=== PATIENT | male | born 1975 | race Caucasian/White ===

== ENCOUNTER 2021-03-19 12:10 | Emergency (ER) | payer OTHER ==
[~2021-03-19] VITALS: Ht 177.8 cm; Wt 106.6 kg
[2021-03-19] MEDS ORDERED: HYDR1TAB94 PO (19:18)
== END 2021-03-19 19:25 | disposition home or self-care (01) ==
LOC: ER 12:10
DX: M19.011 Primary osteoarthritis, right shoulder (principal)
CPT/HCPCS: 73000; 99283-25

== ENCOUNTER 2022-10-21 11:40 | Inpatient (IN) | payer OTHER ==
[~2022-10-21] VITALS: Ht 177.8 cm; Wt 85.6 kg
[~2022-10-21 11:40] MED LIST: HYDR1TAB94 PO
[2022-10-21 15:32] LABS: Hematocrit 38.9 % (37.0-53.0); Hemoglobin 14.2 g/dL (13.5-17.5); Mean Corpuscular HGB 29.2 pg (26.0-34.0); Mean Corpuscular HGB Conc 36.5 g/dL (31.5-36.5); Mean Corpuscular Volume 80 fL (80-100); Mean Platelet Volume 9.8 fL (9.1-12.4); Platelet Count 252 K/mm3 (150-400); RDW Coefficient Variation 11.9 % (11.7-14.2); RDW Standard Deviation 34.5 fL (35.1-46.3); Red Blood Cell Count 4.87 M/mm3 (4.30-5.90); White Blood Cell Count 26.24 K/mm3 (4.00-11.30)
[2022-10-21 15:52] LABS: Bun/Creatinine Ratio 25.9 (12.0-20.0); Creatinine, Blood 0.89 mg/dL (0.60-1.20); Potassium, Blood 4.5 mmol/L (3.5-5.5)
[2022-10-21 16:02] LABS: BAND PERCENT MAN 4 % (0-8); BASOPHILS PERCENT MAN 0 % (0-2); EOSINOPHILS PERCENT MAN 0 % (0-6); LYMPHOCYTES ABSOLUTE MAN 1.31 K/mm3 (0.84-5.20); LYMPHOCYTES PERCENT MAN 5 % (21-46); MONOCYTES ABSOLUTE MAN 2.09 K/mm3 (0.16-1.47); MONOCYTES PERCENT MAN 8 % (4-13); NEUTROPHILS ABSOLUTE MAN 22.82 K/mm3 (1.96-9.15); SEG NEUTROPHILS PERCENT MAN 83 % (41-73); TOTAL CELLS COUNTED 100
[2022-10-21] MEDS ORDERED: SULTRIDS PO (16:10)
[2022-10-22] VITALS (15 sets, daily range): BP systolic 125–170; BP diastolic 67–92
--- NOTE | 2022-10-22 04:32 | NUR ---
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 PT ARRIVED TO FLOOR VIA GURNEY FOLLOWING I&D OF GLUTEAL FOLD AND PERINEUM IN OR. CONTACT PRECAUTIONS FOR HX OF MRSA, UNKNOWN WHERE. FULL CODE. PT ORIENTED TO UNIT. CALL BUTTON WITHIN REACH. IV FLUIDS INFUSING ORDERED. IV ANTIB RX ARE SCHEDULED. TELEMETRY IN PLACE. DX OF JOSE GANGRENE/NECROTIZING FASCITIS. POSSIBLE TRANSFER TO HIGHER LEVEL OF CARE. REPEAT CT SCAN WILL BE PERFORMED.
[2022-10-22 06:08] LABS: BASOPHILS ABSOLUTE AUTO 0.05 K/mm3 (0.00-0.23); BASOPHILS PERCENT AUTO 0 % (0-2); EOSINOPHILS PERCENT AUTO 0 % (0-6); Hematocrit 35.6 % (37.0-53.0); Hemoglobin 12.6 g/dL (13.5-17.5); IMMATURE GRAN ABSOLUTE AUTO 0.18 K/mm3 (0.00-0.10); IMMATURE GRAN PERCENT AUTO 1 % (0-1); LYMPHOCYTES PERCENT AUTO 2 % (21-46); MONOCYTES ABSOLUTE AUTO 2.29 K/mm3 (0.16-1.47); MONOCYTES PERCENT AUTO 10 % (4-13); Mean Corpuscular HGB 28.8 pg (26.0-34.0); Mean Corpuscular HGB Conc 35.4 g/dL (31.5-36.5); Mean Corpuscular Volume 82 fL (80-100); NEUTROPHILS ABSOLUTE AUTO 19.41 K/mm3 (1.96-9.15); NEUTROPHILS PERCENT AUTO 87 % (41-73); Platelet Count 222 K/mm3 (150-400); RDW Standard Deviation 36.6 fL (35.1-46.3); Red Blood Cell Count 4.37 M/mm3 (4.30-5.90); White Blood Cell Count 22.43 K/mm3 (4.00-11.30)
[2022-10-22 07:16] LABS: Albumin, Blood 1.8 g/dL (3.4-5.0); Albumin/Globulin Ratio 0.5 (0.8-1.8); Bilirubin, Total 0.7 mg/dL (0.1-1.0); Bun/Creatinine Ratio 30.3 (12.0-20.0); Calcium, Blood 8.2 mg/dL (8.5-10.1); Creatinine, Blood 0.89 mg/dL (0.60-1.20); Globulin, Blood 3.3 g/dL (2.2-4.0); Potassium, Blood 4.3 mmol/L (3.5-5.5); Total Protein, Blood 5.1 g/dL (6.4-8.2)
--- NOTE | 2022-10-22 09:00 | NUR ---
pt laying in bed awake a/ox4, pleasant and cooperative with care, follows commands well, states he's doing ok, lungs are clear on r/a, resp even and unlabored, no cough noted, hrr, tele in place running sr per monitor, see strip, no edema noted, ppp+2, cap refill <3sec, vs stable, afebrile, piv site is clear and patent, infusing ns at 200mls/hr, btx4, abd flat soft nontneder, voids via urinal, skin has dressing to buttocks, nabor, one person assist, natanael, call light in reach.
--- NOTE | 2022-10-22 15:17 | NUR ---
transport here to take pt to [facility] for higher level of care, he was able to ambulate to the [facility], dressings were placed on wounds but is leaking some, pt had a bm, and pulled some of the packing while trying to wipe, mepilex applies to wounds, but unable to cover all, report to Luz LOPEZ, left piv to [facility], pt has all his belongings.
== END 2022-10-22 14:30 | disposition short-term general hospital (02) | DRG 853 ==
LOC: ER 11:40 → SURS 10-22 01:19 → MEDS 10-22 01:19
PROVIDERS: Emergency Medicine; Surgery; ADMIT Internal Medicine
PROC: 3E03329 Introduction of Other Anti-infective into Peripheral Vein, Percutaneous Approach (ICD-10-PCS; 2022-10-22)
PROC: 0W9M0ZZ Drainage of Male Perineum, Open Approach (ICD-10-PCS; 2022-10-22)
PROC: 0WBM0ZZ Excision of Male Perineum, Open Approach (ICD-10-PCS; principal; 2022-10-22 07:00)
DX: A41.9 Sepsis, unspecified organism (principal); M72.6 Necrotizing fasciitis; E87.1 Hypo-osmolality and hyponatremia; E87.20 Acidosis, unspecified; L02.215 Cutaneous abscess of perineum; N49.3 Fournier gangrene; R65.20 Severe sepsis without septic shock; E78.00 Pure hypercholesterolemia, unspecified; E11.65 Type 2 diabetes mellitus with hyperglycemia; I10 Essential (primary) hypertension; D64.9 Anemia, unspecified; K21.9 Gastro-esophageal reflux disease without esophagitis; Z79.1 Long term (current) use of non-steroidal anti-inflammatories (NSAID); Z79.2 Long term (current) use of antibiotics; Z79.891 Long term (current) use of opiate analgesic; Z79.4 Long term (current) use of insulin; Z79.899 Other long term (current) drug therapy; Z86.14 Personal history of Methicillin resistant Staphylococcus aureus infection
CPT/HCPCS: 36415; 72193; 74177; 80048; 80053; 82947; 83036; 83605; 85025; 87040; 88304; 96365-59; 96366-59; 96367-59; 96368; 96375-59; 99285-25; A9270; J1100; J1170; J1815; J1885; J2405; J2543; J2704; J3010; J3370; J7030; J7050; Q9967

== ENCOUNTER 2022-12-13 14:43 | Observation (INO) | payer OTHER ==
[~2022-12-13] VITALS: Ht 177.8 cm; Wt 86.8 kg
[~2022-12-13 14:43] MED LIST changes: +SULTRIDS PO
[2022-12-13] MEDS ORDERED: CATAPRES0.1 MG PO (15:21)
[2022-12-13] MEDS ORDERED: CATAPRES-TTS 11 EAC1 TOP (15:21)
[2022-12-13] MEDS ORDERED: AMLO10 PO (15:21)
[2022-12-13] MEDS ORDERED: CARDURA2 M2 PO (15:22)
[2022-12-13] MEDS ORDERED: BASAGLAR K100 UNIT/1 SC (15:23)
[2022-12-13] MEDS ORDERED: HYDR10 PO (15:23)
[2022-12-13] MEDS ORDERED: HUMALOG100 UNIT/1 SC (15:23)
[2022-12-13] MEDS ORDERED: LOSARTAN POTAS100 M1 PO (15:23)
[2022-12-13] MEDS ORDERED: Norco 5-325 Ta1 EACH PO (15:23)
[2022-12-13 16:57] LABS: BASOPHILS ABSOLUTE AUTO 0.05 K/mm3 (0.00-0.23); BASOPHILS PERCENT AUTO 1 % (0-2); EOSINOPHILS ABSOLUTE AUTO 0.42 K/mm3 (0.00-0.68); EOSINOPHILS PERCENT AUTO 5 % (0-6); Hematocrit 35.2 % (37.0-53.0); Hemoglobin 12.1 g/dL (13.5-17.5); IMMATURE GRAN ABSOLUTE AUTO 0.02 K/mm3 (0.00-0.10); IMMATURE GRAN PERCENT AUTO 0 % (0-1); LYMPHOCYTES ABSOLUTE AUTO 2.28 K/mm3 (0.84-5.20); LYMPHOCYTES PERCENT AUTO 27 % (21-46); MONOCYTES PERCENT AUTO 8 % (4-13); Mean Corpuscular HGB 28.7 pg (26.0-34.0); Mean Corpuscular HGB Conc 34.4 g/dL (31.5-36.5); Mean Corpuscular Volume 83 fL (80-100); Mean Platelet Volume 8.8 fL (9.1-12.4); NEUTROPHILS ABSOLUTE AUTO 4.99 K/mm3 (1.96-9.15); NEUTROPHILS PERCENT AUTO 59 % (41-73); Platelet Count 221 K/mm3 (150-400); RDW Coefficient Variation 12.9 % (11.7-14.2); RDW Standard Deviation 39.2 fL (35.1-46.3); Red Blood Cell Count 4.22 M/mm3 (4.30-5.90); White Blood Cell Count 8.46 K/mm3 (4.00-11.30)
[2022-12-13 17:23] LABS: Anti-Xa UFH, PHA Monitoring <0.10 IU/mL; International Normalized Ratio 0.93; Prothrombin Time Results 9.8 Sec (9.7-11.5)
[2022-12-13 17:26] LABS: Albumin, Blood 3.2 g/dL (3.4-5.0); Albumin/Globulin Ratio 0.9 (0.8-1.8); Bilirubin, Total 0.5 mg/dL (0.1-1.0); Calcium, Blood 9.2 mg/dL (8.5-10.1); Globulin, Blood 3.4 g/dL (2.2-4.0); Potassium, Blood 4.4 mmol/L (3.5-5.5); Total Protein, Blood 6.6 g/dL (6.4-8.2)
[2022-12-13 19:37] VITALS: BP 185/83
--- NOTE | 2022-12-13 20:00 | NUR ---
ARRIVAL TO PCU 6 PT ARRIVED TO PCU 6 AT APPROXIMATELY 1935. PT TRANSFERED WITH SBA TO HOSPITAL BED FROM ER [facility]. MOTHER AT BEDSIDE. PT A&Ox4, COMMUNICATES NEEDS APPROPRIATELY, ORIENTED TO CALL LIGHT/UNIT. BP ELEVATED WITH SBP 180's, PHYSICIAN NOTIFIED, ORDERS PLACED. SINUS TWILA 50's, DENIES CP/PRESSURE. SpO2> 92% RA, DENIES SOB. PT ARRIVED WITH HEPARIN INFUSING PER EMAR, MANAGED BY PHARMACY. PT NPO. BED IN LOWEST POSITION, CALL LIGHT IN REACH.
[2022-12-13 20:31] VITALS: BP 180/89
--- NOTE | 2022-12-13 22:30 | NUR ---
REFUSING CARE PT ARRIVED TO PCU 6 WITH NS INFUSING INTO Y SITE OF HEPARIN gtt, EXPLAINED TO PT THAT THIS RN WAS GOING TO HAVE TO PLACE SECOND IV FOR PT TO RECEIVE BOTH NS AND HEPARIN CORRECTLY. PT REFUSING SECOND IV PLACEMENT AND REFUSING NS gtt, PHYSICIAN NOTIFIED, DOCUMENTED AGAINST IN EMAR. PT RIPPED OFF TELE AND IS REFUSING TO WEAR IT, PHYSICIAN NOTIFIED. PT REFUSING ALL BLOOD SUGAR CHECKS, PHYSICIAN NOTIFIED. WHEN PT IS REFUSING CARE HE IS AGGRESSIVE, CUSSING, AND RAISING VOICE AT STAFF. PROVIDED EDUCATION ON IMPORTANCE OF THE INTERVENTIONS THAT HE IS RECEIVING WHILE HERE.
[2022-12-13 23:33] VITALS: BP 134/70
[2022-12-14] VITALS (9 sets, daily range): BP systolic 145–178; BP diastolic 76–123
--- NOTE | 2022-12-14 04:00 | NUR ---
REFUSING VS PT RESUING 0400 VS. WILL ATTEMPT TO GET VS AT 0600 WHEN LAB DRAWS ANTI-Xa AND MORNING LABS.
--- NOTE | 2022-12-14 05:34 | NUR ---
SHIFT SUMMARY SEE PREVIOUS NOTES. PT A&Ox4, CALLS AND COMMUNICATES NEEDS. PT AGGRESSIVE, CUSSING, AND RAISING VOICE WHEN COMMUNICATING WITH STAFF. PT REFUSING MAJORITY OF CARE AND INTERVENTIONS, PHSYICIAN AWARE. BP STABLE, SINUS TWILA 50's, DENIES CP/PRESSURE. SpO2> 92% RA, DENIES SOB. PULSES PRESENT IN LLE, MARKED AND FOUND WITH DOPPLER. LLE SLIGHTLY COOLER THAN RLE. PT NPO SINCE 0000. HEPARIN gtt INFUSING PER EMAR, MANAGED BY PHARMACY. NO OTHER EVENTS, WILL REPORT TO ONCOMING RN.
[2022-12-14 06:47] LABS: BASOPHILS ABSOLUTE AUTO 0.06 K/mm3 (0.00-0.23); BASOPHILS PERCENT AUTO 1 % (0-2); EOSINOPHILS ABSOLUTE AUTO 0.48 K/mm3 (0.00-0.68); EOSINOPHILS PERCENT AUTO 7 % (0-6); Hematocrit 36.4 % (37.0-53.0); Hemoglobin 12.2 g/dL (13.5-17.5); IMMATURE GRAN ABSOLUTE AUTO 0.01 K/mm3 (0.00-0.10); IMMATURE GRAN PERCENT AUTO 0 % (0-1); LYMPHOCYTES ABSOLUTE AUTO 2.39 K/mm3 (0.84-5.20); LYMPHOCYTES PERCENT AUTO 37 % (21-46); MONOCYTES ABSOLUTE AUTO 0.58 K/mm3 (0.16-1.47); MONOCYTES PERCENT AUTO 9 % (4-13); Mean Corpuscular HGB 28.2 pg (26.0-34.0); Mean Corpuscular HGB Conc 33.5 g/dL (31.5-36.5); Mean Corpuscular Volume 84 fL (80-100); Mean Platelet Volume 8.8 fL (9.1-12.4); NEUTROPHILS PERCENT AUTO 46 % (41-73); Platelet Count 216 K/mm3 (150-400); RDW Coefficient Variation 12.8 % (11.7-14.2); RDW Standard Deviation 39.4 fL (35.1-46.3); Red Blood Cell Count 4.33 M/mm3 (4.30-5.90); White Blood Cell Count 6.52 K/mm3 (4.00-11.30)
[2022-12-14 07:16] LABS: Albumin/Globulin Ratio 0.9 (0.8-1.8); Bilirubin, Total 0.5 mg/dL (0.1-1.0); Bun/Creatinine Ratio 17.1 (12.0-20.0); Calcium, Blood 9.1 mg/dL (8.5-10.1); Creatinine, Blood 0.88 mg/dL (0.60-1.20); Globulin, Blood 3.4 g/dL (2.2-4.0); Potassium, Blood 4.3 mmol/L (3.5-5.5); Total Protein, Blood 6.4 g/dL (6.4-8.2)
--- NOTE | 2022-12-14 09:15 | NUR ---
PT ADMITTED TO BEING DIFFICULT OVERNIGHT AND STATED HIS DESIRE TO BE LESS GRUMPY TODAY. PT TOOK MEDS WITHOUT COMPLAINT AND HAS BEEN COMPLIANT WITH CARE.
--- NOTE | 2022-12-14 11:50 | NUR ---
PT TAKEN TO FOR PROCEDURE
--- NOTE | 2022-12-14 12:57 | NUR ---
PT BACK IN ROOM. PT EDUCATED TO LAY FLAT FOR 2 HOURS. PT STATES "I WILL BE LEAVING THIS AFTERNOON, I WILL NOT STAY ANOTHER NIGHT." PT EDUCATED TO ALLOW POST OP VITALS.
[2022-12-14] MEDS ORDERED: XARELTO20 MG PO ×2 (14:48→14:49)
--- NOTE | 2022-12-14 14:58 | NUR ---
WOUND CARE PT IS POST SURGICAL INTERVENTION FOR PILONIDAL CYST. 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 WOUNDS ARE BEEFY RED WITH NO S/S INFECTION. HE REPORTS RECIEVING OUTPATIENT WOUND CARE IN [place]. WOUNDS CLEANSED WITH NS, SILVASORB GEL PLACED TO WOUND BED AND COVERED 4X4 GAUZE. PT REPOTS MINIMAL DRAINAGE AND PREFERES TO HAVE JUST 4X4 WITH UNDERWARE TO SECURE. PT TOLERATED WELL
--- NOTE | 2022-12-14 16:01 | NUR ---
DISCHARGE SUMMARY: PT EDUCATED ON MEDICATIONS AND PRECAUTIONS OF FEMORAL SITE. PT STATED UNDERSTANDING AND HAD NO QUESTIONS OR CONCERNS AT THE TIME OF DISCHARGE. PT DECLINED ESCORT OUT AND AMBULATED OUT WITH HIS MOM. GAIT IS STEADY AND HE DECLINES PAIN.
== END 2022-12-14 15:50 | disposition home or self-care (01) ==
LOC: ER 14:43 → PCU 14:44
PROVIDERS: Physician Assistant; ADMIT Internal Medicine
DX: E11.51 Type 2 diabetes mellitus with diabetic peripheral angiopathy without gangrene (principal); E78.5 Hyperlipidemia, unspecified; K21.9 Gastro-esophageal reflux disease without esophagitis; I10 Essential (primary) hypertension; D64.9 Anemia, unspecified; I70.202 Unspecified atherosclerosis of native arteries of extremities, left leg
CPT/HCPCS: 36415; 37184; 37224; 75625; 75716; 75774; 76937; 80053; 83880; 85025; 85520; 85610; 85730; 93306; 93926; 93971; 96365; 96366; 96376; 99152; 99153; 99284-25; A9270; C1725; C1760; C1769; C1887; C1894; C2623; G0378; J1644; J1815; J2250; J2997; J3010; J7030; J7050; Q9967

== ENCOUNTER 2023-08-30 06:21 | Emergency (ER) | payer OTHER ==
[~2023-08-30] VITALS: Ht 180.3 cm; Wt 90.7 kg
[~2023-08-30 06:21] MED LIST changes: +AMLO10 PO; +BASAGLAR K100 UNIT/1 SC; +CARDURA2 M2 PO; +CATAPRES-TTS 11 EAC1 TOP; +CATAPRES0.1 MG PO; +HUMALOG100 UNIT/1 SC; +HYDR10 PO; +LOSARTAN POTAS100 M1 PO; +Norco 5-325 Ta1 EACH PO; +XARELTO20 MG PO
[2023-08-30] MEDS ORDERED: GLIP5 PO (06:39)
[2023-08-30 06:59] LABS: BASOPHILS PERCENT AUTO 1 % (0-2); EOSINOPHILS ABSOLUTE AUTO 0.22 K/mm3 (0.00-0.68); EOSINOPHILS PERCENT AUTO 1 % (0-6); Hematocrit 42.7 % (37.0-53.0); Hemoglobin 14.8 g/dL (13.5-17.5); IMMATURE GRAN ABSOLUTE AUTO 0.04 K/mm3 (0.00-0.10); IMMATURE GRAN PERCENT AUTO 0 % (0-1); LYMPHOCYTES ABSOLUTE AUTO 1.98 K/mm3 (0.84-5.20); LYMPHOCYTES PERCENT AUTO 12 % (21-46); MONOCYTES ABSOLUTE AUTO 1.52 K/mm3 (0.16-1.47); MONOCYTES PERCENT AUTO 9 % (4-13); Mean Corpuscular HGB 29.2 pg (26.0-34.0); Mean Corpuscular HGB Conc 34.7 g/dL (31.5-36.5); Mean Corpuscular Volume 84 fL (80-100); Mean Platelet Volume 9.8 fL (9.1-12.4); NEUTROPHILS PERCENT AUTO 77 % (41-73); Platelet Count 262 K/mm3 (150-400); RDW Coefficient Variation 12.9 % (11.7-14.2); RDW Standard Deviation 39.3 fL (35.1-46.3); Red Blood Cell Count 5.06 M/mm3 (4.30-5.90); White Blood Cell Count 17.06 K/mm3 (4.00-11.30)
[2023-08-30 07:18] LABS: Albumin, Blood 3.6 g/dL (3.4-5.0); Albumin/Globulin Ratio 1.1 (0.8-1.8); Bun/Creatinine Ratio 21.6 (12.0-20.0); Calcium, Blood 8.8 mg/dL (8.5-10.1); Creatinine, Blood 0.79 mg/dL (0.60-1.20); Globulin, Blood 3.3 g/dL (2.2-4.0); Potassium, Blood 3.7 mmol/L (3.5-5.5); Total Protein, Blood 6.9 g/dL (6.4-8.2)
[2023-08-30 11:30] VITALS: BP 203/109
== END 2023-08-30 11:25 | disposition home or self-care (01) ==
LOC: ER 06:21
PROVIDERS: Emergency Medicine
DX: I73.9 Peripheral vascular disease, unspecified (principal); E11.9 Type 2 diabetes mellitus without complications; E78.5 Hyperlipidemia, unspecified; I10 Essential (primary) hypertension; K21.9 Gastro-esophageal reflux disease without esophagitis; Z79.4 Long term (current) use of insulin; Z79.899 Other long term (current) drug therapy
CPT/HCPCS: 75635; 80053; 83605; 85025; 93971; 99284-25; Q9967

== ENCOUNTER → 2024-07-11 | Outpatient (CLI) | payer OTHER ==
[~2024-07-11] MED LIST changes: +GLIP5 PO
== END ==
LOC: LAB 17:55 → LAB SHORT 17:55
DX: E11.69 Type 2 diabetes mellitus with other specified complication (principal); Z79.4 Long term (current) use of insulin
CPT/HCPCS: 82043